=== PATIENT | male | born 2000 | race Caucasian/White ===

== ENCOUNTER 2019-01-12 19:38 | Emergency (ER) | payer OTHER ==
[~2019-01-12] VITALS: Ht 172.7 cm; Wt 105.7 kg
[2019-01-12 19:44] VITALS: Ht 172.7 cm; Wt 105.7 kg
--- NOTE | 2019-01-12 20:51 | ERD ---
ER Documentation Chief Complaint Chief Complaint C/O SOB, VOMITING, DIARRHEA AND FEVER X4 DAYS HPI This is a 18-year-old male who presents to emergency department with complaints of abdominal pain that is on and off for about 4 days. Vomited multiple times with nonbilious nonbloody emesis. Had a diarrhea multiple times today. Also complains of right lower abdominal pain that started yesterday. Reports difficulty walking due to lower abdominal pain. Denies headache, dizziness, blurry vision, changes in vision, neck pain, throat pain, neck stiffness, difficulty swallowing, difficulty breathing lying flat, loss of bowel bladder control, urinary symptoms, trauma, injury, falls, recent surgery in the last 3 weeks, recent travel, recent long travel, leg pain, difficulty walking, numbness or tingling sensation, recent exposure to any illness, recent antibiotic use in the last 3 months, fever, chills. ROS All systems reviewed and are negative except as per history of present illness. Medications Home Meds Active Scripts Ibuprofen* (Motrin*) 800 Mg Tab, 800 MG PO Q6H PRN for PAIN AND OR ELEVATED TEMP, #30 TAB Prov:JEANCARLOS RODRIGUEZ F 01/13/19 Ondansetron Hcl* (Zofran*) 4 Mg Tablet, 4 MG PO Q8H PRN for NAUSEA AND/OR VOMITING, #30 TAB Prov:JEANCARLOS RODRIGUEZ F 01/12/19 Famotidine* (Pepcid*) 20 Mg Tablet, 20 MG PO DAILY for 30 Days, TAB Prov:CARLIILABANPATTAR F 01/12/19 Reported Medications [None] No Conflict Check 03/03/11 Allergies Allergies: Coded Allergies: No Known Drug Allergy (Verified Allergy, Mild, 01/12/19) PMhx/Soc Medical and Surgical Hx: pt denies Surgical Hx History of Surgery: No Anesthesia Reaction: No Hx Neurological Disorder: No Hx Respiratory Disorders: Yes (asthma) Hx Cardiac Disorders: No Hx Psychiatric Problems: Yes (anxiety) Hx Miscellaneous Medical Probl: Yes (SEVERE ADHD) Hx Alcohol Use: No Hx Substance Use: No Hx Tobacco Use: No Smoking Status: Never smoker Physical Exam Vitals Physical Exam Const: No acute distress Head: Atraumatic Eyes: Normal Conjunctiva ENT: Normal External Ears, Nose and Mouth. Bilateral ears: TMs are not erythematous. No bleeding. No discharge. Nose: There is no frontal or maxillary sinus tenderness to palpation. Throat: Uvula is midline and nondisplaced. Tonsils are +2 bilaterally without redness and without exudates. Tolerating secretions. Patent airway. Speaks full and clear sentences. Neck: Full range of motion. No meningismus. No nuchal rigidity. No signs of meningeal irritation. Resp: Clear to auscultation bilaterally Cardio: Regular rate and rhythm, no murmurs Abd: Soft, non tender, non distended. Normal bowel sounds. Has right lower abdominal tenderness to palpation. Skin: No petechiae or rashes Back: No midline or flank tenderness Ext: No cyanosis, or edema Neur: Awake and alert. No neurological deficit. Psych: Normal Mood and Affect Results 24 hrs Laboratory Tests Test 01/12/19 21:05 01/12/19 21:06 White Blood Count 9.9 10^3/ul Red Blood Count 5.81 10^6/ul Hemoglobin 15.1 g/dl Hematocrit 45.3 % Mean Corpuscular Volume 78.0 fl Mean Corpuscular Hemoglobin 26.0 pg Mean Corpuscular Hemoglobin Concent 33.3 g/dl Red Cell Distribution Width 12.7 % Platelet Count 332 10^3/UL Mean Platelet Volume 9.2 fl Immature Granulocytes % 0.400 % Neutrophils % 89.3 % Lymphocytes % 6.3 % Monocytes % 3.7 % Eosinophils % 0.0 % Basophils % 0.3 % Nucleated Red Blood Cells % 0.0 /100WBC Immature Granulocytes # 0.040 10^3/ul Neutrophils # 8.8 10^3/ul Lymphocytes # 0.6 10^3/ul Monocytes # 0.4 10^3/ul Eosinophils # 0.0 10^3/ul Basophils # 0.0 10^3/ul Nucleated Red Blood Cells # 0.0 10^3/ul Sodium Level 142 mmol/L Potassium Level 3.9 mmol/L Chloride Level 100 mmol/L Carbon Dioxide Level 29 mmol/L Anion Gap 13 Blood Urea Nitrogen 13 mg/dl Creatinine 0.81 mg/dl Est Glomerular Filtrat Rate mL/min > 60 mL/min Glucose Level 114 mg/dl Calcium Level 10.4 mg/dl Total Bilirubin 0.5 mg/dl Direct Bilirubin 0.00 mg/dl Indirect Bilirubin 0.5 mg/dl Aspartate Amino Transf (AST/SGOT) 59 IU/L Alanine Aminotransferase (ALT/SGPT) 121 IU/L Alkaline Phosphatase 97 IU/L Total Protein 9.6 g/dl Albumin 5.2 g/dl Globulin 4.40 g/dl Albumin/Globulin Ratio 1.18 Amylase Level 96 U/L Lipase 27 U/L Urine Color DIALLO Urine Clarity SLIGHTLY CLOUDY Urine pH 5.0 Urine Specific [place] 1.030 Urine Ketones 1+ mg/dL Urine Nitrite NEGATIVE mg/dL Urine Bilirubin NEGATIVE mg/dL Urine Urobilinogen NEGATIVE mg/dL Urine Leukocyte Esterase NEGATIVE Tamar/ul Urine Microscopic RBC 1 /HPF Urine Microscopic WBC 2 /HPF Urine Mucus MODERATE /HPF Urine Hemoglobin NEGATIVE mg/dL Urine Glucose NEGATIVE mg/dL Urine Total Protein NEGATIVE mg/dl Current Medications Medications Dose Sig/Darell Start Time Status Last (Trade) Ordered Route PRN Stop Time Admin Dose Reason Admin Sodium 1,000 ml @ Q1H ONCE 01/12/19 DC 01/12/19 Chloride 1,000 mls/hr IV 21:00 21:05 01/12/19 21:59 Ondansetron 4 mg ONCE STAT 01/12/19 DC 01/12/19 HCl (Zofran IV 20:54 21:06 Inj) 01/12/19 20:59 Morphine 4 mg ONCE STAT 01/12/19 DC 01/12/19 Sulfate IV 20:54 21:06 (morphine) 01/12/19 20:59 IV Flush 10 ml STK-MED 01/12/19 DC 01/12/19 (NS 10 ml) ONCE .ROUTE 22:05 22:34 01/12/19 22:06 Sodium 100 ml @ ud STK-MED 01/12/19 DC 01/12/19 Chloride ONCE .ROUTE 22:05 22:34 01/12/19 22:06 Iohexol 150 ml STK-MED 01/12/19 DC 01/12/19 (Omnipaque ONCE .ROUTE 22:05 22:34 300mg/ ml) 01/12/19 22:06 100 ml @ ONCE ONCE 01/13/19 DC 01/13/19 Acetaminophen 400 mls/hr IVPB 02:00 02:00 01/13/19 02:14 Ketorolac 60 mg ONCE STAT 01/13/19 DC 01/13/19 Tromethamine IV 01:46 02:00 (Toradol) 2/21/19 01:48 Procedures/MDM Diagnostic tests: Urinalysis: Reviewed. Influenza a and B: Negative CT of the abdomen: No evidence of urolithiasis, obstructive uropathy, diverticulitis or appendicitis. Ultrasound of the gallbladder: Bowel gas obscures visualization of the pancreas, otherwise normal right upper quadrant ultrasound. Treatment: Saline lock. Normal saline IV bolus. Tylenol. Zofran. Re-evaluation: No episode of emesis here in emergency department. Negative Melo sign. Negative [place] sign (heel jar test). Negative psoas sign. Negative Rovsing sign. No CVA tenderness. Able to jump 5 times without developing lower abdominal pain. Patient and family member stated that they are comfortable going home. Differential diagnosis I have low suspicion for sepsis, fevers respiratory infection, meningitis, mastoiditis, peritonsillar abscess, pancreatitis, cholecystitis, bowel obstru ction, pyelonephritis, obstructing kidney stones. Final diagnosis: Abdominal pain. Prescription: Motrin. Zofran. Follow-up with PCP in the next 24-48 hours. Come back in 8-10 hours for recheck of GI symptoms. Come back here in the emergency department for any new symptoms or any worsening symptoms. All questions and concerns were answered. Patient and family members verbalized understanding and agreed with plan of care. Hemodynamically stable on discharge. Departure Diagnosis: Primary Impression: Abdominal pain Condition: Stable Additional Instructions: Follow-up with PCP in the next 24-48 hours. Come back in 8-10 hours for recheck of GI symptoms. Come back here in the emergency department for any new symptoms or any worsening symptoms. JEANCARLOS RODRIGUEZ Jan 12, 2019 20:51
[2019-01-12] MEDS ORDERED: morphine 4 MG/ML VIAL IV STA (20:54)
[2019-01-12] MEDS ORDERED: ONDANSETRON 4 MG INJ IV STA (20:54)
[2019-01-12] MEDS ORDERED: SOD CHLORIDE 0.9% 1,000 ML IV ONE (21:00)
[2019-01-12] MEDS ORDERED: IOHEXOL 300MG/ML 150 ML BTL ONE (22:05)
[2019-01-12] MEDS ORDERED: SOD CHLORIDE 0.9% 100 ML ONE (22:05)
[2019-01-12] MEDS ORDERED: ACET500C5 PO (23:15)
[2019-01-12] MEDS ORDERED: ONDA4TAB8 PO (23:16)
[2019-01-12] MEDS ORDERED: FAMO-96 PO (23:16)
[2019-01-13] MEDS ORDERED: IBUP800T48 PO (01:17)
[2019-01-13] MEDS ORDERED: KETOROLAC 30 MG INJ IV STA (01:46)
[2019-01-13] MEDS ORDERED: ACETAMINOPHEN 1000MG/100ML IV 100 ML IVPB ONE (02:00)
[2019-01-13 02:57] VITALS: BP 105/52; PULSE 102; RESP 17
== END 2019-01-13 03:00 | disposition home or self-care (01) ==
LOC: FTE 19:38
DX: R10.9 Unspecified abdominal pain (principal); R11.10 Vomiting, unspecified; J45.909 Unspecified asthma, uncomplicated; F90.9 Attention-deficit hyperactivity disorder, unspecified type
CPT/HCPCS: 74177; 76705; 80053; 81001; 82150; 83690; 85025; 87400; 96361; 96365; 96375; J0131; J1885; J2270; J2405; J7030; Q9967; Z7502; Z7610; 81003

== ENCOUNTER 2019-05-15 13:51 | Emergency (ER) | payer OTHER ==
[~2019-05-15] VITALS: Ht 172.7 cm; Wt 109.1 kg
[~2019-05-15 13:51] MED LIST: FAMO-96 PO; IBUP800T48 PO; ONDA4TAB8 PO
[2019-05-15 13:59] VITALS: BP 138/78; PULSE 86; RESP 18; Ht 172.7 cm; Wt 109.1 kg
--- NOTE | 2019-05-15 14:22 | ERD ---
ER Documentation Chief Complaint Chief Complaint generalize muscle pain w/rash x3 days, sorethroat this am HPI 18-year-old male presents with complaint of allergic reaction. States that he has had a itchy red rash for the last 3 days. He denies any knowledge of allergies. He states he lives with his girlfriend in the shared bed but she does not have any symptoms. Denies any fevers, chills, respiratory distress, wheezing, cough, stridor, headache. ROS All systems reviewed and are negative except as per history of present illness. Medications Home Meds Active Scripts Ibuprofen* (Motrin*) 800 Mg Tab, 800 MG PO Q6H PRN for PAIN AND OR ELEVATED TEMP, #30 TAB Prov:PASILABAN,PATTAR F 01/13/19 Ondansetron Hcl* (Zofran*) 4 Mg Tablet, 4 MG PO Q8H PRN for NAUSEA AND/OR VOMITING, #30 TAB Prov:PASILABAN,PATTAR F 01/12/19 Famotidine* (Pepcid*) 20 Mg Tablet, 20 MG PO DAILY for 30 Days, TAB Prov:PASILABAN,KLAR F 01/12/19 Reported Medications [None] No Conflict Check 03/03/11 Allergies Allergies: Coded Allergies: No Known Drug Allergy (Verified Allergy, Mild, 01/12/19) PMhx/Soc History of Surgery: No Anesthesia Reaction: No Hx Neurological Disorder: No Hx Respiratory Disorders: Yes (asthma) Hx Cardiac Disorders: No Hx Psychiatric Problems: Yes (anxiety) Hx Miscellaneous Medical Probl: Yes (SEVERE ADHD) Hx Alcohol Use: No Hx Substance Use: No Hx Tobacco Use: No FmHx Family History: No diabetes, No coronary disease, No other Physical Exam Vitals Vital Signs Date Temp Pulse Resp B/P (MAP) Pulse Ox O2 O2 Flow FiO2 Time Delivery Rate 05/15/19 97.9 86 18 138/78 98 13:59 (98) Physical Exam Const: No acute distress Head: Atraumatic Eyes: Normal Conjunctiva ENT: Normal External Ears, Nose and Mouth. No tongue edema or angioedema. Airway is patent and clear. Neck: Full range of motion. No meningismus. Resp: Clear to auscultation bilaterally Cardio: Regular rate and rhythm, no murmurs Abd: Soft, non tender, non distended. Normal bowel sounds Skin: Scattered erythematous wheals noted over the arms and back. Back: No midline or flank tenderness Ext: No cyanosis, or edema Neur: Awake and alert Psych: Normal Mood and Affect Results 24 hrs Current Medications Medications Dose Sig/Darell Start Time Status Last (Trade) Ordered Route PRN Stop Time Admin Dose Reason Admin Prednisone 60 mg ONCE ONCE 05/15/19 (Prednisone) PO 14:30 05/15/19 14:31 Famotidine 40 mg ONCE ONCE 05/15/19 (Pepcid) PO 14:30 05/15/19 14:31 50 mg ONCE ONCE 05/15/19 Diphenhydrami PO 14:30 ne HCl 05/15/19 14:31 (Benadryl) Procedures/MDM MDM: Patients presentation is consistent with allergic reaction. Patient treated with prednisone, pepcid, and benadryl. Patient discharged with 4 day course of prednisone and benadryl. At no time during the ER course did patient exhibit signs of anaphylaxis, respiratory distress, or angioedema. Low suspicion scarlet fever, necrotizing fasciitis, sepsis, gangrene, Jose Cruz-Hosea syndrome, toxic epidural necrolysis, abscess, cellulitis. Patient's vitals were WNL throughout the ER course at time of discharge. At this time, patient is stable for discharge and outpatient management. I have instructed the patient to follow-up with his/her primary care physician in 1-2 days. I have discussed with the patient the possibility of needing to see a specialist for further workup and imaging studies if symptoms persist. I have instructed the patient to promptly return to the ER for any new or worsening symptoms including but not limited to increased pain, fever, nausea, vomiting, weakness or LOC. The patient and/or family expressed understanding of and agreement with this plan. All questions were answered. Home care instructions were provided. DISCLAIMER: Inadvertent spelling and grammatical errors are likely due to EHR/dictation software use and do not reflect on the overall quality of patient care. Also, please note that the electronic time recorded on this note does not necessarily reflect the actual time of the patient encounter. Departure Diagnosis: Primary Impression: Allergic reaction Encounter type: initial encounter Qualified Codes: T78.40XA - Allergy, unspecified, initial encounter Condition: Stable BRIDGER SOTOEL May 15, 2019 14:22
[2019-05-15] MEDS ORDERED: BEN50 PO (14:24)
[2019-05-15] MEDS ORDERED: PRED20TA PO (14:24)
[2019-05-15] MEDS ORDERED: FAMOTIDINE 20 MG TAB PO ONE (14:30)
[2019-05-15] MEDS ORDERED: DIPHENHYDRAMINE 50 MG CAP PO ONE (14:30)
[2019-05-15] MEDS ORDERED: predniSONE 20 MG TAB PO ONE (14:30)
== END 2019-05-15 14:34 | disposition home or self-care (01) ==
LOC: FTE 13:51
DX: R21 Rash and other nonspecific skin eruption (principal); J45.909 Unspecified asthma, uncomplicated
CPT/HCPCS: J7512; Z7502; Z7610